=== PATIENT | male | born 2000 | race Caucasian/White ===

== ENCOUNTER 2020-11-03 12:56 | Emergency (ER) | payer SELFPAY ==
[~2020-11-03] VITALS: Ht 175.3 cm; Wt 100.0 kg
[2020-11-03 15:07] LABS: BASOPHILS % 0.7 % (0.0-2.0); EOSINOPHILS % 0.9 % (0.0-5.0); HEMATOCRIT. 44.1 % (42.0-52.0); HEMOGLOBIN. 14.6 g/dL (14.0-18.0); LYMPHOCYTES % 22.3 % (20.0-50.0); MEAN CORPUSCULAR VOLUME 84.3 fL (80.0-94.0); MEAN PLATELET VOLUME 8.8 fl (7.4-10.4); MONOCYTES % 6.7 % (2.0-8.0); NEUTROPHILS % 69.4 % (40.0-76.0); PLATELET 297 x1000/uL (130-400); RED BLOOD CELL COUNT 5.23 mill/uL (4.7-6.1); RED CELL DISTRIBUTION WIDTH 13.7 % (11.6-14.6)
[2020-11-03 15:08] LABS: CHLORIDE 106 mEq/L (98-107)
[2020-11-03 15:14] LABS: ETHANOL BLOOD 287 mg/dL
[2020-11-03 15:25] VITALS: BP 104/63
[2020-11-03] MEDS ORDERED: CHLORDIAZEPOXIDE 25MG CAPSULE PO ONE (15:45)
[2020-11-03] MEDS ORDERED: POTASSIUM CHLORIDE 20MEQ TABLET SR PO ONE (15:45)
== END 2020-11-03 16:45 | disposition left against medical advice (07) ==
LOC: ER 13:04
DX: T51.0X Toxic effect of ethanol (principal); E87.6 Hypokalemia; X58.XXXA Exposure to other specified factors, initial encounter
CPT/HCPCS: 36415; 80053; 80307; 80320; 80329; 85025; 93005; 99284; G0480

== ENCOUNTER 2021-05-08 09:10 | Emergency (ER) | payer OTHER ==
[~2021-05-08] VITALS: Ht 165.1 cm; Wt 77.0 kg
[2021-05-08 09:19] VITALS: BP 120/66
[2021-05-08 11:03] LABS: BASOPHILS % 0.4 % (0.0-2.0); EOSINOPHILS % 1.5 % (0.0-5.0); HEMATOCRIT. 45.2 % (42.0-52.0); HEMOGLOBIN. 14.8 g/dL (14.0-18.0); LYMPHOCYTES % 18.3 % (20.0-50.0); MEAN CORPUSCULAR HEMOGLOBIN 28.8 pg (28.0-32.0); MEAN CORPUSCULAR VOLUME 88.1 fL (80.0-94.0); MEAN PLATELET VOLUME 8.6 fl (7.4-10.4); MONOCYTES % 4.2 % (2.0-8.0); NEUTROPHILS % 75.6 % (40.0-76.0); PLATELET 288 x1000/uL (130-400); RED BLOOD CELL COUNT 5.13 mill/uL (4.7-6.1); RED CELL DISTRIBUTION WIDTH 13.7 % (11.6-14.6)
[2021-05-08 11:12] LABS: CHLORIDE 106 mEq/L (98-107)
[2021-05-08 11:17] LABS: ETHANOL BLOOD < 10 mg/dL
== END 2021-05-08 11:11 | disposition left against medical advice (07) ==
LOC: ER 09:46
DX: R10.9 Unspecified abdominal pain (principal)
CPT/HCPCS: 36415; 80048; 80076; 80320; 85025; 99283; G0480